=== PATIENT | male | born 1950 | race African-American/Black ===

== ENCOUNTER 2019-03-29 22:33 | Emergency (ER) | payer OTHER ==
[~2019-03-29] VITALS: Ht 152.4 cm; Wt 68.0 kg
[2019-03-29] MEDS ORDERED: NORFLEX100 MG PO (23:38)
[2019-03-29] MEDS ORDERED: TRAMADOL 50 MG50 MG PO (23:38)
[2019-03-29] MEDS ORDERED: KEPPRA250 MG PO ×2 (23:58→23:59)
[2019-03-29] MEDS ORDERED: UNICOMPLEX M TA1 TA1 PO (23:59)
[2019-03-30] MEDS ORDERED: PREDNISOLONE ACE5 ML OPHTHALMIC
[2019-03-30] MEDS ORDERED: ZANTAC 150MG T150 MG PO (00:01)
[2019-03-30] MEDS ORDERED: RENA-VITE RX T1 EACH PO (00:01)
[2019-03-30] MEDS ORDERED: ZINC SULFATE 2220 M1 PO (00:02)
[2019-03-30] MEDS ORDERED: APAP650 PO (00:03)
[2019-03-30] MEDS ORDERED: CALCIUM ACETAT667 M2 PO (00:04)
[2019-03-30] MEDS ORDERED: FLONASE 0.05%50 MCG NASAL (00:05)
[2019-03-30] MEDS ORDERED: CARVEDILOL12.5 MG PO (00:05)
[2019-03-30] MEDS ORDERED: FOLIC ACID1 MG PO (00:06)
[2019-03-30] MEDS ORDERED: NEURONTIN 300300 M1 PO (00:07)
[2019-03-30] MEDS ORDERED: HYDRALAZINE 2525 MG PO (00:07)
[2019-03-30] MEDS ORDERED: IMDUR 30 MG TAB30 M1 PO (00:08)
[2019-03-30] MEDS ORDERED: LEVEMIR SUBQ (00:09)
[2019-03-30] MEDS ORDERED: NOVOLOG100 UNIT/1 SUBQ (00:10)
[2019-03-30] MEDS ORDERED: LIPITOR40 MG PO (00:11)
[2019-03-30] MEDS ORDERED: BANOPHEN25 MG PO (00:12)
[2019-03-30] MEDS ORDERED: LOPERAMIDE 2 MG2 M1 PO (00:13)
[2019-03-30] MEDS ORDERED: NITROSTAT0.4 M1 SUBLING (00:15)
[2019-03-30] MEDS ORDERED: SILTUSSIN100 MG/5 M PO (00:16)
[2019-03-30] MEDS ORDERED: TRAMADOL 50 MG50 MG PO (00:17)
[2019-03-30] MEDS ORDERED: NORFLEX100 MG PO (00:29)
[2019-03-30 02:42] VITALS: BP 131/66
--- NOTE | 2019-03-30 08:06 | EKG ---
[facility] [employer] [place] [address] ELECTROCARDIOGRAM REPORT Name: SUE STEVENS Room #: DEP LORNE Benitez#: [id number] ������������������ Admission: 03/29/19 ������������������ Attend Phys: Discharge: 03/30/19 ������������������ Date of : 50 Report #: [id number] ����������������������������������������������������������������� [id number] THIS REPORT FOR: //name// [facility] ED Test Date: 2019-03-29 Test Time: 23:05:19 Pat Name: SUE STEVENS Department: Room: Gender: M Notcher: X : 1950 Requested By: Jude Varela Order Number: [id number] MD: Mann Florian Measurements Intervals [place] Rate: 83 P: 69 ID: [id number] QRS: -17 QRSD: 183 T: 140 QT: 436 QTc: 513 Interpretive Statements Sinus rhythm Ventricular premature complex Left bundle branch block No previous ECG available for comparison Electronically Signed On 03-30-2019 8:06:22 CDT by Mann Florian [email or web address] ��������������������������������������������� <ELECTRONICALLY SIGNED> ���������������������������������������� By: Mann Florian MD, [facility] ��������������������������������������������� 03/30/19 [id number] Mann Florian MD, FACC /EPI
== END 2019-03-30 02:43 | disposition home or self-care (01) ==
LOC: ER 22:33
DX: J98.11 Atelectasis (principal); M43.6 Torticollis; Z88.6 Allergy status to analgesic agent; Z88.0 Allergy status to penicillin